=== PATIENT | male | born 1990 | race Caucasian/White ===

== ENCOUNTER 2020-01-03 10:00 | Emergency (ER) | payer MEDICAID ==
[~2020-01-03] VITALS: Ht 182.9 cm; Wt 85.7 kg
--- NOTE | 2020-01-03 10:25 | NUR ---
Patient to room from [facility], ambulatory with steady gait, reports BAUM x 3 days, sensitive to light and sound. Speech clear. NAD noted. RR even and unlabored. Call light within reach.
[2020-01-03] MEDS ORDERED: SODIUM CHLORIDE FLUSH 10ML SYR IVF ONE (10:30)
[2020-01-03] MEDS ORDERED: KETOROLAC 30 MG/1 ML IVPush ONE (10:30)
[2020-01-03] MEDS ORDERED: PROCHLORPERAZINE 5 MG/ML, 2ML IVPush ONE (10:30)
[2020-01-03] MEDS ORDERED: PROCHLORPERAZINE 5 MG/ML, 2ML ONE (10:48)
[2020-01-03] MEDS ORDERED: KETOROLAC 30 MG/1 ML ONE (10:48)
--- NOTE | 2020-01-03 11:48 | NUR ---
Resting on the gurney, lights dimmed. reports pain has improved to 5/10.
--- NOTE | 2020-01-03 12:28 | NUR ---
Pt to CT with tech. NAD noted.
[2020-01-03 13:27] VITALS: BP 101/44
--- NOTE | 2020-01-03 13:30 | NUR ---
discharged home discharge instructions provided all questions and concerns addressed. Pain 0/10. Reports BAUM is gone. Speech clear. NAD noted. Ambulatory with steady gait. all patient belongings are with patient
== END 2020-01-03 13:53 | disposition home or self-care (01) ==
LOC: ED 10:25
DX: R51 Headache (principal); R11.0 Nausea; F17.200 Nicotine dependence, unspecified, uncomplicated
CPT/HCPCS: 70450; 96374; 96375; 99284; J0780; J1885

== ENCOUNTER 2020-01-10 09:42 | Emergency (ER) | payer MEDICAID ==
[~2020-01-10] VITALS: Ht 188 cm; Wt 87.7 kg
--- NOTE | 2020-01-10 09:58 | NUR ---
TO ED FROM HOME C/O FATIGUE/ABD PAIN/NAUSEA/VOMITING X1 WK. BAUM. VOMITING QOD. DENIES DIARRHEA. STS HAVING TROUBLE URINATING "HARD TO KEEP STREAM GOING". SMOKED HEROIN LAST NIGHT. NO FLU SHOT. CALL PARKS IN REACH AWAITING MD.
[2020-01-10] MEDS ORDERED: ONDANSETRON 2MG/ML, 2ML IVPush ONE (10:30)
[2020-01-10] MEDS ORDERED: SODIUM CHLORIDE FLUSH 10ML SYR IVF ONE (10:30)
[2020-01-10] MEDS ORDERED: KETOROLAC 30 MG/1 ML IVPush ONE (10:30)
[2020-01-10] MEDS ORDERED: SODIUM CHLORIDE 0.9% 1,000ML IVBOLUS ONE (10:30)
[2020-01-10] MEDS ORDERED: FAMOTIDINE 20 MG/2 ML IV ONE (10:30)
[2020-01-10] MEDS ORDERED: KETOROLAC 30 MG/1 ML ONE (10:40)
[2020-01-10] MEDS ORDERED: ONDANSETRON 2MG/ML, 2ML ONE (10:41)
[2020-01-10] MEDS ORDERED: FAMOTIDINE 20 MG/2 ML ONE (10:41)
--- NOTE | 2020-01-10 10:56 | NUR ---
piv est meds per mar labs/ua sent call fields in reach nad. as
[2020-01-10 11:09] LABS: BASOPHILS # (AUTO) 0.03 x10^3/uL (0-0.1); BASOPHILS % (AUTO) 0 % (0-1); EOSINOPHILS # (AUTO) 0.17 x10^3/uL (0-0.4); EOSINOPHILS % (AUTO) 3 % (1-7); LYMPHOCYTES % (AUTO) 32 % (22-44); MD NO; MEAN CORPUSCULAR HEMOGLOBIN 31.3 pg (27.5-34.5); MEAN CORPUSCULAR HGB CONC 33.5 g/dL (33.2-36.2); MEAN CORPUSCULAR VOLUME 93.4 fL (81-97); MONOCYTES % (AUTO) 9 % (2-9); NEUTROPHILS # (AUTO) 3.28 x10^3/uL (1.8-6.8); NEUTROPHILS % (AUTO) 56 % (42-75); PLATELET COUNT 227 x10^3/uL (130-400); RED CELL DISTRIBUTION WIDTH 12.9 % (9.4-14.8)
[2020-01-10 11:12] LABS: MICROSCOPIC NOT IND
[2020-01-10 11:18] LABS: CULTURE INDICATED? NO
[2020-01-10 11:19] LABS: ALANINE AMINOTRANSFERASE 33 U/L (12-78); ALBUMIN 3.8 g/dL (3.4-5.0); ANION GAP 4 mmol/L (5-15); CALCIUM 8.8 mg/dL (8.5-10.1); CHLORIDE 111 mmol/L (98-107); CREATININE 1.01 mg/dL (0.7-1.3)
[2020-01-10 11:21] LABS: ALKALINE PHOSPHATASE 77 U/L (45-117); BILIRUBIN,TOTAL 0.7 mg/dL (0.2-1.0); TOTAL PROTEIN 7.4 g/dL (6.4-8.2)
[2020-01-10] MEDS ORDERED: ACETAMINOPHEN 500 MG TABLET PO ONE (12:00)
[2020-01-10] MEDS ORDERED: ACETAMINOPHEN 500 MG TABLET ONE (12:14)
[2020-01-10 12:25] VITALS: BP 118/52
--- NOTE | 2020-01-10 12:25 | NUR ---
labs pending apap per jan call fields in reach nad. as
[2020-01-10 12:29] LABS: HCT (SEDRATE) 45.8 % (39.2-51.8)
== END 2020-01-10 13:28 | disposition home or self-care (01) ==
LOC: ED 10:15
DX: R51 Headache (principal); R11.2 Nausea with vomiting, unspecified; R50.9 Fever, unspecified; R05 Cough
CPT/HCPCS: 36415; 80053; 81003; 83605; 83690; 85025; 85651; 86140; 96361; 96374; 96375; 99283; J1885; J2405; J3490; J7030